=== PATIENT | female | born 1955 | race Asian ===

== ENCOUNTER 2024-07-14 19:27 | Emergency (ER) | payer OTHER, SELFPAY ==
[2024-07-14 19:38] VITALS: BP 139/87
[2024-07-14 20:09] LABS: Urine Albumin 2+ (Neg - Trace); Urine Bilirubin Negative (Negative); Urine Character Slightly Cloudy (Clear); Urine Color Yellow; Urine Glucose Negative (Negative); Urine Ketone 3+ (Negative); Urine Leukocyte 3+ (Negative); Urine Nitrite Negative (Negative); Urine Occult Blood 4+ (Negative); Urine Urobilinogen Negative (Neg - 1+)
[2024-07-14 20:10] LABS: % Basophils 0.6 % (0-2); % Eosinophils 0.3 % (0-6); % Immature Granulocytes 0.6 % (0-0.5); % Lymphocytes 10.8 % (20.5-51.1); % Monocytes 5.9 % (1.7-9.3); % Neutrophils 81.8 % (42.2-75.2); Absolute Basophils 0.1 10^3/uL (0-0.2); Absolute Eosinophils 0.1 10^3/uL (0-0.7); Absolute Immature Granulocytes 0.1 10^3/uL (0-0.05); Absolute Lymphocytes 1.6 10^3/uL (1.2-3.4); Absolute Monocytes 0.9 10^3/uL (0.1-0.6); Absolute Neutrophils 11.9 10^3/uL (1.4-6.5); Hematocrit 38.9 % (37.0-47.0); Mean Corp Hgb Conc. 33.4 g/dL (33.0-37.0); Mean Corpuscular Hgb 29.4 pg (27.0-31.0); Nucleated Red Blood Cells % 0 %; Platelet Count 274 10^3/uL (130-400); Red Blood Cell Count 4.42 10^6/uL (4.20-5.40); Red Cell Dist. Width 12.9 % (11.5-14.5); White Blood Cell Count 14.5 10^3/uL (4.8-10.8)
[2024-07-14 20:14] LABS: Urine Mucus Moderate; Urine Squamous Cell 0-2 /LPF (Few)
[2024-07-14 20:15] LABS: Urine Bacteria Moderate (Negative); Urine White Cell 26-30 /HPF (0-5)
[2024-07-14 20:35] LABS: ALT (SGPT) 32 U/L (0-35); AST (SGOT) 41 U/L (14-36); Albumin 4.8 g/dl (3.5-5.0); Alkaline Phosphatase 85 U/L (38-126); Blood Urea Nitrogen 21 mg/dl (7-17); Calcium 9.8 mg/dl (8.4-10.2); Carbon Dioxide 22 mmol/L (22-30); Chloride 102 mmol/L (98-107); Glucose 118 mg/dl (70-99); Potassium 4.2 mmol/L (3.5-5.1); Sodium 136 mmol/L (135-145); Total Bilirubin 1.2 mg/dl (0.2-1.3); Total Protein 7.3 g/dl (6.3-8.2); eGFR 44.51
[2024-07-14 20:36] LABS: Lipase 78 U/L (23-300)
[2024-07-14 21:54] VITALS: BMI 30.2
--- NOTE | 2024-07-14 21:59 | ED.GENMED ---
History of Present Illness
General
Chief Complaint: Urinary Symptoms
Source: patient
Exam Limitations: none
Time Seen by Provider: 07/14/24 21:44
History of Present Illness
History of Present Illness:
69-year-old female presents with 2 days worth of right lower abdominal pain that is intermittent in nature. She had vomiting at the onset of her symptoms. She denies any urinary symptoms. No chest pain. No further vomiting. She has not had a
bowel movement in 2 days. No prior abdominal surgical history. She notes chills but no measurable fever. No other complaints at this time
Past History
Past History
ED Past Medical History: HTN, Hypercholesterolemia and Other (osteoporosis)
ED Past Surgical History: None
Social History
Tobacco: Non-smoker
Alcohol: None
Living: with family
Phy Exam
Physical Exam
Physical Exam:
General: Well-appearing female no acute respiratory distress HEENT: Normocephalic atraumatic
Heart: Regular rate and rhythm no murmurs
Lungs: Clear no wheeze or rales
Abdomen is soft tender to the right lower quadrant. No guarding rebound normal bowel sounds nondistended
Ext: NO cyanosis or edema.
SKin: Warm, no rash
Course
Orders/Labs/Results
Orders:
Orders
07/14/24 19:52
Complete Blood Count/With Diff Urgent
Comprehensive Metabolic Panel Urgent
Lipase Urgent
Urinalysis Reflex To Culture Urgent
Date Specimen was Collected: 07/14/24
Time Specimen was Collected: 19:40
Urine Microscopic Reflex Cult Urgent
Urine Culture Urgent
[facility] Source: U
Specimen Description:
Date Specimen was Collected: 07/14/24
Time Specimen was Collected: 19:40
07/14/24 21:57
CT Abd/pelvis W Iv Cont Urgent
Comment:
Reason For Exam: rlq pain
02/24/25 22:02
0.9% Sodium Chloride 1000 ml [Nss] 1,000 ml IV BOLUS
Ketorolac [Toradol] 15 mg IV NOW STA
07/15/24 01:10
CefTRIAXone [Rocephin] 1,000 mg IV NOW STA
07/15/24 01:22
Sterile Water [Sterile Water For Injection] 10 ml .ROUTE .K-MED ONE
Abnormal Lab Results
07/14/24
19:52
WBC 14.5 H 10^3/uL
(4.8-10.8)
Abs Immat Gran (auto) 0.1 H 10^3/uL
(0-0.05)
Absolute Neuts (auto) 11.9 H 10^3/uL
(1.4-6.5)
Absolute Monos (auto) 0.9 H 10^3/uL
(0.1-0.6)
Immature Gran % 0.6 H %
(0-0.5)
Neutrophils % 81.8 H %
(42.2-75.2)
Lymphocytes % 10.8 L %
(20.5-51.1)
BUN 21 H mg/dl
(7-17)
Creatinine 1.3 H mg/dL
(0.6-1.0)
Glucose 118 H mg/dl
(70-99)
AST 41 H U/L
(14-36)
Urine Ketones 3+ A
(Negative)
Ur Occult Blood Reflex 4+ A
(Negative)
Leukocyte Esterase Rfl 3+ A
(Negative)
Urine RBC 11-15 A /HPF
(0-2)
Urine WBC (Reflex) 26-30 A /HPF
(0-5)
Urine Bacteria (Reflex) Moderate A
(Negative)
Urine Albumin (Reflex) 2+ A
(Neg - Trace)
07/14/24 19:52
07/14/24 19:52
Vital Signs
Initial and Last Documented VS:
Initial Vital Signs
Temp Pulse Resp BP Pulse Ox
98.5 F 82 18 139/87 98
07/14/24 19:38 07/14/24 19:38 07/14/24 19:38 07/14/24 19:38 07/14/24 19:38
Last Documented Vital Signs
Temp Pulse Resp BP Pulse Ox
98.5 F 82 18 139/87 98
07/14/24 19:38 07/14/24 19:38 07/14/24 19:38 07/14/24 19:38 07/14/24 19:38
MDM/Problems Addressed
Differential Diagnosis Includes:
Right lower abdominal pain. Consider appendicitis versus renal colic versus bowel obstruction versus UTI.
Will check labs. CT pending.
*Critical Care Note
Total Time (30-74mins, 75-104mins- exclusive of procedures): Not Applicable
Update Note
Update Note:
CT demonstrates 3 mm right sided mid ureteral stone. Urinalysis with signs of infection. Discussed case with urology and relayed him the information including pertinent labs and urinalysis and CT findings. Patient otherwise is stable and
nontoxic. Will give a dose of Rocephin here and per recommendations of urology will discharge with trial of passage at home with antibiotics to take by mouth. Return precautions were given
ED Attending Note
-
Portions of this chart may have been created with voice recognition software.� Occasional wrong word or��sound alike� substitutions may have occurred due to the inherent limitations of voice recognition software.
Discharge Plan
Departure
Patient Disposition: Home (Routine Discharge)
Date of Disposition: 07/15/24
Time of Disposition: 02:07
Patient with high blood pressure during this ER visit?: No
Discharge Problem:
Kidney stone
Instructions: Kidney Stones (DC)
Prescriptions:
New
cefdinir 300 mg capsule
300 mg PO BID Qty: 14 0RF
tamsulosin [Flomax] 0.4 mg capsule
0.4 mg PO DAILY Qty: 14 0RF
ibuprofen 600 mg tablet
600 mg PO Q8H PRN (Reason: Pain) Qty: 10 0RF
Referrals:
NONE,* [Active] -
Salas Echeverria MD [Active] -
Activity Restrictions/Additional Instructions:
Drink plenty of fluids. Please return here for fever vomiting increased pain. As discussed you are passing a kidney stone and you may have a urinary tract infection. Take antibiotics as directed. Follow-up with urology otherwise
Interventions
Interventions:
*Risk Screen - Suicide Last Done: 07/14/24 19:38
*General Assessment Last Done: 07/14/24 19:38
*Neglect/Abuse Screening Last Done: 07/14/24 21:50
ED- Fall Risk Assessment Last Done: 07/14/24 21:50
*ED COVID-19 Vaccine History Last Done: 07/14/24 19:38
EP-Bqkfsg-Yohuylilxk Assessment Last Done: 07/14/24 21:50
ED-Female Genitourinary Assessment Last Done: 07/14/24 21:50
Discharge Date and Time
Print Language: AUSTRIAN
[2024-07-14 22:06] VITALS: BP 110/74
[2024-07-14] MEDS: NSS 1000 IV (22:09)
[2024-07-14] MEDS: TORADOL 15 MG IV (22:09)
[2024-07-14 23:00] VITALS: BP 117/67
[2024-07-15] MEDS: ROCEPHIN 1000 MG IV (01:28)
[2024-07-15 01:31] VITALS: BP 120/58
[2024-07-15 02:00] VITALS: BP 97/51
== END 2024-07-15 02:25 | disposition home or self-care (01) ==
LOC: EMR 19:27
PROVIDERS: Emergency Medicine; EMERGENCY PHYSICIAN Emergency Medicine; FAMILY PHYSICIAN Internal Medicine
DX: N13.2 Hydronephrosis with renal and ureteral calculous obstruction (principal)
CPT/HCPCS: 99285; 96374; 96375; 96361; 74177; 80053; 81003; 81015; 83690; 85025; 87077; 87086; Q9967